=== PATIENT | female | born 1965 ===

== ENCOUNTER 2017-05-01 17:41 | Emergency (ER) | payer OTHER ==
[2017-05-01 17:49] VITALS: BP 137/90; PULSE 106; RESP 20; TEMP 97.6; O2SAT 98
--- NOTE | 2017-05-01 18:30 | C.PDOC ---
History Of Present Illness 51 yr old female presents to the ER with complaints of feeling anxious and headache. As per daughter at bedside, patient's mom and they were at the today when she became anxious and started complaining of a headache. Family specifically requesting medicine to relax the patient and to take her home right away. ROS is limited. Denies chest pain, SOB, SI or HI. Time Seen by Provider: 05/01/17 17:53 Chief Complaint (Nursing): Headache History Per: Patient, Family (daughter) History/Exam Limitations: no limitations Onset/Duration Of Symptoms: Sudden Onset ([employer]IST[employer]) Past Medical History Vital Signs: Last Vital Signs Temp 97.6 F 05/01/17 17:48 Pulse 106 H 05/01/17 17:48 Resp 20 05/01/17 17:48 BP 137/90 05/01/17 17:48 Pulse Ox 98 05/01/17 18:30 Family History: States: Unknown Family Hx - Social History Hx Alcohol Use: No Hx Substance Use: No - Immunization History Hx Tetanus Toxoid Vaccination: No Hx Influenza Vaccination: Yes (Per daughter) Hx Pneumococcal Vaccination: No Review Of Systems Except As Marked, All Systems Reviewed And Found Negative. Cardiovascular: Negative for: Chest Pain Respiratory: Negative for: Shortness of Breath Psych: Negative for: Suicidal ideation Physical Exam - Physical Exam Appears: Non-toxic, Other ((+) anxious, tearful) Skin: Warm, Dry, No Rash Head: Atraumatic, Normacephalic Eye(s): bilateral: Normal Inspection, PERRL, EOMI Oral Mucosa: Moist Neck: Normal, Normal ROM, Supple Chest: Symmetrical, No Tenderness Cardiovascular: Rhythm Regular, No Murmur Respiratory: Normal Breath Sounds, No Rales, No Rhonchi, No Stridor, No Wheezing Extremity: Normal ROM Neurological/Psych: Oriented x3, Normal Speech, Normal Motor ED Course And Treatment O2 Sat by Pulse Oximetry: 98 (RA) Pulse Ox Interpretation: Normal Medical Decision Making Medical Decision Making: PLAN: * Ativan PO * Tylenol PO Disposition - Disposition Disposition: HOME/ ROUTINE Disposition Time: 18:29 Condition: STABLE Additional Instructions: you are declining any further reassessment or observation. you are able to return to er with any worsening symptoms or concerns. Instructions: Acute Headache (ED), Anxiety (ED) Forms: [employer] (Kyrgyz) Print Language: MACEDONIAN - Clinical Impression Clinical Impression: Headache, Anxiety - Scribe Statement The provider has reviewed the documentation as recorded by the Smileyibe Svetlana Mederos Provider Attestation: All medical record entries made by the Smileyibadam were at my direction and personally dictated by me. I have reviewed the chart and agree that the record accurately reflects my personal performance of the history, physical exam, medical decision making, and the department course for this patient. I have also personally directed, reviewed, and agree with the discharge instructions and disposition.
== END 2017-05-01 18:46 | disposition home or self-care (01) ==
LOC: C.ER 17:41
DX: F41.9 Anxiety disorder, unspecified (principal); R51 Headache

== ENCOUNTER 2018-04-30 16:48 | Emergency (ER) | payer OTHER ==
[2018-04-30 16:57] VITALS: RESP 18
[2018-04-30] MEDS ORDERED: Albuterol 0.083% Inhal Sol (2.5 mg/3 mL) UD INH STA (17:25)
[2018-04-30] MEDS ORDERED: Albuterol 0.083% Inhal Sol (2.5 mg/3 mL) UD ONE (17:42)
--- NOTE | 2018-04-30 17:46 | RAD ---
Date of service: 04/30/2018 HISTORY: Cough COMPARISON: 11/05/2015. TECHNIQUE: Chest PA and lateral FINDINGS: LINES AND TUBES: None. LUNG AND PLEURA: The lungs are well inflated. Venous congestion and increased interstitial opacities. No pleural effusion or pneumothorax. HEART AND MEDIASTINUM: There is mild cardiomegaly. No aortic atherosclerotic calcifications present. The hilar and mediastinal contours are within normal limits. SKELETAL STRUCTURES: The bony structures are within normal limits for the patient's age. VISUALIZED UPPER ABDOMEN: Normal. OTHER FINDINGS: None. IMPRESSION: Findings may represent atypical/interstitial pneumonitis. Mild pulmonary venous congestion. No lobar pneumonia.
[2018-04-30 18:19] VITALS: BP 125/88; PULSE 112; TEMP 101.1; O2SAT 98
--- NOTE | 2018-04-30 18:22 | C.PDOC ---
History Of Present Illness 52 year old female presents to the emergency department with complaints of cough, fever, and body aches for 1 day. Patient denies nausea, vomiting, recent travel, and sick contact. Time Seen by Provider: 04/30/18 17:07 Chief Complaint (Nursing): Fever History Per: Patient History/Exam Limitations: no limitations Onset/Duration Of Symptoms: Days (1) Current Symptoms Are (Timing): Still Present Associated Symptoms: Fever, Cough, Myalgias Past Medical History Reviewed: Historical Data, Nursing Documentation, Vital Signs Vital Signs: Last Vital Signs Temp 101.1 F H 04/30/18 18:18 Pulse 112 H 04/30/18 18:18 Resp 18 04/30/18 18:18 BP 125/88 04/30/18 18:18 Pulse Ox 98 04/30/18 18:18 - Medical History PMH: No Chronic Diseases Surgical History: No Surg Hx Family History: States: No Known Family Hx - Social History Hx Alcohol Use: No Hx Substance Use: No - Immunization History Hx Tetanus Toxoid Vaccination: No Hx Influenza Vaccination: No Hx Pneumococcal Vaccination: No Review Of Systems Except As Marked, All Systems Reviewed And Found Negative. Constitutional: Positive for: Fever Respiratory: Positive for: Cough Musculoskeletal: Positive for: Other (body aches) Neurological: Positive for: Headache Physical Exam - Physical Exam Appears: Non-toxic, No Acute Distress Skin: Normal Color, Warm, Dry Head: Atraumatic, Normacephalic Eye(s): bilateral: Normal Inspection, PERRL, EOMI Nose: Normal Oral Mucosa: Moist Throat: Normal, No Erythema Neck: Normal, Supple Chest: Symmetrical, No Tenderness Cardiovascular: Rhythm Regular, No Murmur Respiratory: Normal Breath Sounds, No Rales, No Rhonchi, Wheezing (faint expiratory wheeze) Gastrointestinal/Abdominal: Soft, No Tenderness, No Guarding, No Rebound Neurological/Psych: Oriented x3, Normal Speech, Normal Cognition ED Course And Treatment O2 Sat by Pulse Oximetry: 98 (RA) Pulse Ox Interpretation: Normal Medical Decision Making Medical Decision Making: Plan: CXR Albuterol 2.5mg INH Motrin 600mg PO Tamiflu 75mg PO Tylenol 975mg PO Zithromax 500mg PO Nebulizer Treatment Influenza Serology assessment: bronchitis, flu-like illness Disposition Counseled Patient/Family Regarding: Studies Performed, Diagnosis, Need For Followup, Rx Given - Disposition Referrals: [facility] [Outside] Disposition: HOME/ ROUTINE Disposition Time: 18:30 Condition: STABLE Additional Instructions: follow up with your doctor within 2 days call to make an appointment take medications as prescribed return to ER if symptoms worsens or progress motrin or tylenol as needed for fever rest, drink plenty of fluids Prescriptions: Albuterol HFA [Ventolin HFA 90 mcg/actuation (8 g)] 2 puff IH [id number] #1 puff Azithromycin [Zithromax] 250 mg PO DAILY #4 tab Benzonatate [Tessalon Perles] 100 mg PO BID PRN #14 tab PRN Reason: Cough Naproxen [Naprosyn] 500 mg PO BID PRN #16 tab PRN Reason: Pain, Moderate (4-7) Oseltamivir Phosphate [Tamiflu] 75 mg PO BID #10 capsule Instructions: Flu, Adult (DC), Acute Bronchitis Forms: Gen Discharge Inst Nigerien, [facility] (Nigerien), Work Excuse - Clinical Impression Clinical Impression: Influenza-like illness, Bronchitis - Scribe Statement The provider has reviewed the documentation as recorded by the Scribe (Tulio Zaldivar) Provider Attestation: All medical record entries made by the Scribe were at my direction and personally dictated by me. I have reviewed the chart and agree that the record accurately reflects my personal performance of the history, physical exam, medical decision making, and the department course for this patient. I have also personally directed, reviewed, and agree with the discharge instructions and disposition.
== END 2018-04-30 18:35 | disposition home or self-care (01) ==
LOC: C.ER 16:48
DX: J11.1 Influenza due to unidentified influenza virus with other respiratory manifestations (principal); J40 Bronchitis, not specified as acute or chronic